=== PATIENT | female | born 1950 | race African-American/Black ===

== ENCOUNTER 2020-01-17 09:04 | Outpatient (CLI) | payer MEDICARE, SELFPAY ==
--- NOTE | ~2020-01-17 | US_ITS ---
EXAMINATION:US venous doppler LE RT INDICATION:Leg swelling TECHNIQUE: Multiple grayscale, color flow and Doppler images of the right lower extremity deep venous systems were obtained and reviewed. COMPARISON:No prior studies for comparison. FINDINGS: There is deep venous thrombosis of the right popliteal, posterior tibial and peroneal veins . The remainder of the right lower extremity veins are patent with normal flow and compressibility. IMPRESSION: 1: Deep venous thrombosis of the right popliteal, peroneal and posterior tibial veins. Patient will be held in the radiology department until her physician is contacted with the results. Reviewed, dictated and finalized at location B. IMPRESSION: 1: Deep venous thrombosis of the right popliteal, peroneal and posterior tibial veins. Patient will be held in the radiology department until her physician is contact ed with the results.
== END 2020-01-17 09:05 | disposition home or self-care (01) ==
LOC: ANHIMG 09:12
PROVIDERS: PCP Student in an Organized Health Care Education/Training Program; Visit Provider Student in an Organized Health Care Education/Training Program
DX: M79.89 Other specified soft tissue disorders (principal); I82.431 Acute embolism and thrombosis of right popliteal vein; I82.451 Acute embolism and thrombosis of right peroneal vein; I82.441 Acute embolism and thrombosis of right tibial vein
CPT/HCPCS: 93971